=== PATIENT | female | born 1975 ===

== ENCOUNTER 2023-08-18 09:23 | Outpatient (CLI) | payer BC, SELFPAY ==
--- NOTE | 2023-08-18 09:30 | NM_ITS ---
WS: [id number] NUCLEAR MEDICINE HIDA SCAN WITH GALLBLADDER EJECTION FRACTION HISTORY: POSTPRANDIAL ABDOMINAL PAIN IN RUQ COMPARISON: None available. TECHNIQUE: The patient was intravenously injected with 7.4 mCi of TC99m Mebrofenin. Immediate imaging over the right upper quadrant was followed by 5 minute image and additional images for a total of 60 minutes. Normal uptake of radiotracer throughout the liver. Activity identified in the gallbladder at 15 minutes and well distended by 60 minutes. Activity in the proximal small bowel was seen by 15 minutes. Good washout of the radiotracer from the liver by 60 minutes. The patient then drank 8 ounces of Ensure Plus. Ejection fraction at 60 minutes was 35%. Normal GB ej ection fraction is 35-75%. Post fatty meal symptoms: None. NM/NM hepatobiliary w phar* [id number] IMPRESSION: 1. Normal HIDA scan. 2. Low normal gallbladder ejection fraction. Very minimal contraction of the g allbladder. Consider mild chronic cholecystitis.
== END 2023-08-18 09:24 | disposition home or self-care (01) ==
PROVIDERS: PCP Nurse Practitioner Family; Visit Provider Internal Medicine
DX: R10.11 Right upper quadrant pain (principal); Z12.11 Encounter for screening for malignant neoplasm of colon
CPT/HCPCS: 78227; A9537